=== PATIENT | female | born 1965 | race Caucasian/White ===

== ENCOUNTER 2016-04-24 01:45 | Emergency (ER) | payer SELFPAY ==
[~2016-04-24] VITALS: Ht 165.1 cm; Wt 74.8 kg
[2016-04-24 01:45] VITALS: BP 137/75
[2016-04-24] MEDS ORDERED: IBUPROFEN 400 MG TABLET ONE ×2 (02:14)
[2016-04-24] MEDS ORDERED: IBUPROFEN 400 MG TABLET PO ONE (02:30)
== END 2016-04-24 02:37 | disposition home or self-care (01) ==
LOC: ER 01:46
DX: S16.1XXA Strain of muscle, fascia and tendon at neck level, initial encounter (principal); V43.52XA Car driver injured in collision with other type car in traffic accident, initial encounter; Y93.89 Activity, other specified; Y92.488 Other paved roadways as the place of occurrence of the external cause; Y99.8 Other external cause status
CPT/HCPCS: A4606; Z7610